=== PATIENT | female | born 1990 | race African-American/Black ===

== ENCOUNTER 2019-04-07 16:27 | Emergency (ER) | payer SELFPAY ==
[~2019-04-07] VITALS: Ht 177.8 cm; Wt 75.0 kg
[2019-04-07 16:42] VITALS: BP 142/80
== END 2019-04-07 18:42 | disposition left against medical advice (07) ==
LOC: ER 16:27
DX: F16.10 Hallucinogen abuse, uncomplicated (principal); Z53.21 Procedure and treatment not carried out due to patient leaving prior to being seen by health care provider